=== PATIENT | female | born 1990 | race Caucasian/White ===

== ENCOUNTER 2020-12-29 14:46 | Emergency (ER) | payer OTHER ==
[~2020-12-29] VITALS: Ht 160 cm; Wt 104.5 kg
[2020-12-29 14:57] VITALS: BP 150/106
== END 2020-12-29 15:44 | disposition home or self-care (01) ==
LOC: EMS 14:50
DX: M54.5 Low back pain (principal)
CPT/HCPCS: 99283; Z7502

== ENCOUNTER 2022-06-05 17:45 | Emergency (ER) | payer OTHER ==
[~2022-06-05] VITALS: Ht 160 cm; Wt 104.5 kg
[2022-06-05 18:30] VITALS: BP 135/93
[2022-06-05] MEDS ORDERED: ACETAMINOPHEN 500 MG TABLET PO ONE (19:30)
[2022-06-05] MEDS ORDERED: OXYMETAZOLINE HCL 0.05% 15 ML NASAL SPRAY NASAL ONE (19:30)
[2022-06-05 19:37] LABS: COVID AG,FIA SOURCE NASOPHARYNGEAL
[2022-06-05 20:12] LABS: INFLUENZA TYPE A NEGATIVE FOR TYPE A (NEGATIVE); INFLUENZA TYPE B NEGATIVE FOR TYPE B (NEGATIVE)
[2022-06-05] MEDS ORDERED: BENZ-70 PO (20:39)
[2022-06-05] MEDS ORDERED: PSEU-221 PO (20:40)
== END 2022-06-05 20:44 | disposition home or self-care (01) ==
LOC: EMS 17:45
DX: J20.9 Acute bronchitis, unspecified (principal); Z20.822 Contact with and (suspected) exposure to COVID-19; F12.90 Cannabis use, unspecified, uncomplicated
CPT/HCPCS: 71045; 87804; 99284